=== PATIENT | male | born 1960 ===

== ENCOUNTER 2017-09-21 05:01 | Day surgery (SDC) | payer OTHER ==
[2017-09-21] MEDS ORDERED: NEXIUM 24HR20 M1 PO (10:59)
[2017-09-21] MEDS ORDERED: CARAFATE1 GM/10 ML PO (11:00)
== END 2017-09-21 12:50 | disposition home or self-care (01) ==
LOC: AMB-ENDOS 05:01
DX: K29.50 Unspecified chronic gastritis without bleeding (principal)